=== PATIENT | female | born 1965 | race Caucasian/White ===

== ENCOUNTER 2016-10-12 11:03 | Observation (INO) | payer BC ==
[2016-10-06 16:20] LABS: HEMATOCRIT 41.7 % (36.0-48.0); HEMOGLOBIN 13.3 g/dL (12.0-16.0)
--- NOTE | ~2016-10-12 | OP ---
Record Of Operation [facility] [place]. [address] NAME: MADHURI ARAIZA : 65 STATUS : ADM Arcelia PAT#: [id number] AGE: 51 ADM/REG DATE : 10/12/16 MR#: [id number] REPORT SERV DATE: 10/12/16 DICTATED BY: NISSA TRONCOSO DATE: 10/12/16 REPORT STATUS : Draft TRANSCRIBED BY: MODL DATE: 10/12/16 DATE OF PROCEDURE: 10/12/2016 PREOPERATIVE DIAGNOSES: 1. Multinodular goiter with tracheal compression. 2. Tracheal stenosis. POSTOPERATIVE DIAGNOSES: 1. Multinodular goiter with tracheal compression. 2. Tracheal stenosis. PROCEDURE: 1. Total thyroidectomy. 2. Left superior parathyroid autotransplantation. 3. NIM monitoring of superior and recurrent laryngeal nerve. SURGEON: Nissa Troncoso M.D. ANESTHESIA: General. COMPLICATIONS: None. COUNTS: All counts correct following the procedure. ESTIMATED BLOOD LOSS: 200 mL. PREOPERATIVE INFORMED CONSENT: We discussed the risks and benefits of surgery to include, but not limited to bleeding, infection, possible superior and/or recurrent laryngeal nerve injury, possible postoperative hypoparathyroidism, and need for lifelong thyroid replacement therapy. She understands the risks and benefits of surgery and consent is on the chart. OPERATIVE FINDINGS: The patient noted to have severe inflammatory changes of the thyroid with increased vascularity surrounding the thyroid consistent with Graves disease or possible Pari's thyroiditis. DESCRIPTION OF PROCEDURE: The patient was brought to the operative suite and placed on the operating table in the supine position. General endotracheal anesthesia was initiated without incident using a [facility] monitoring endotracheal tube. The [facility] monitor was hooked up and calibrated and noted to be functioning properly. The neck was cleaned, prepped and draped in the usual sterile fashion. Following this, a transverse incision was marked out 2 fingerbreadths above the sternal notch and injected with 1% Lidocaine with 1:100,000 epinephrine for hemostasis. Following this, a #15-blade scalpel was used to make an incision down to the underlying subcutaneous tissues. Electrocautery was used to perform sharp dissection down through the platysma layer. The midline fascia was divided using electrocautery. The strap muscles were Record Of Operation [facility] [address] [place]. [address] NAME: MADHURI ARAIZA : 65 STATUS : ADM Arcelia PAT#: [id number] AGE: 51 ADM/REG DATE : 10/12/16 MR#: [id number] REPORT SERV DATE: 10/12/16 DICTATED BY: NISSA TRONCOSO DATE: 10/12/16 REPORT STATUS : Draft TRANSCRIBED BY: MODL DATE: 10/12/16 retracted laterally. Dissecting along the right capsular plane, the middle thyroid vein was dissected out and divided using the harmonic scalpel. The inferior pole vessels were dissected out and dissecting in the tracheoesophageal groove, the recurrent laryngeal nerve was identified and confirmed using the NIMH stimulator and preserved as it was followed up superiorly up to its insertion into the cricoid thyroid notch. The inferior pole vessels were then divided at the level of the capsule of the thyroid using the harmonic scalpel. The superior pole vessels were dissected out and the superior laryngeal nerve was identified and confirmed using the NIMH stimulator and preserved. The superior pole vessels were divided using the harmonic scalpel. The gland was further retracted medially and Esparza's ligament was divided using the harmonic scalpel, bipolar cautery, and a #15-blade scalpel. The gland was further dissected off the anterior tracheal wall and divided just to the left of midline using the harmonic scalpel. The specimen was inspected and there was no evidence of any subcapsular parathyroid. The left lobe of the thyroid was then again carefully dissected out just like the right-hand side, dividing the middle thyroid vein using the harmonic scalpel. The inferior pole vessels were dissected out and the recurrent laryngeal nerve was identified in the tracheoesophageal groove and confirmed using the NIMH stimulator and followed superiorly up to its insertion into the cricothyroid notch and was preserved in its entirety. The inferior and superior parathyroids were identified during the dissection of the recurrent laryngeal nerve. The superior pole vessels were again dissected out. The superior laryngeal nerve was also identified using the NIMH stimulator and preserved. The superior pole vessels were divided using the harmonic scalpel. The gland was further retracted medially and Esparza's ligament was again released using bipolar cautery, a #15-blade scalpel and the harmonic scalpel. The gland was dissected off the anterior tracheal wall using electrocautery and removed en bloc. The left lobe of the thyroid was inspected and there was no evidence of any subcapsular parathyroid tissue. The specimen was sent for permanent section. The wound was copiously irrigated with sterile saline. Any bleeding sites were cauterized using bipolar cautery. The [facility] stimulator was used to stimulate the superior and recurrent laryngeal nerves bilaterally at the end of the case and these were noted to be functioning properly. The deep cervical space was filled with platelet rich plasma and the midline fascia was closed using a running 3-0 Vicryl suture followed by closure of the platysmal layer using interrupted 3-0 Vicryl followed by placement of further platelet poor plasma in the subcutaneous and subplatysmal space. The skin was closed using running subcuticular Prolene suture followed by Benzoin, Steri-Strips and Tegaderm Dressing. The patient was then awakened from anesthesia, extubated, and taken to the recovery room in stable condition. Half of the superior parathyroid on the left hand side that was identified was removed, cut up into small pieces, and implanted in the left sternocleidomastoid muscle to help prevent the possibility of postoperative hypoparathyroidism. Wound was closed in the standard fashion. MEGAN/TEO Record Of [address] [address] NAME: MADHURI ARAIZA : 65 STATUS : ADM Arcelia PAT#: [id number] AGE: 51 ADM/REG DATE : 10/12/16 MR#: [id number] REPORT SERV DATE: 10/12/16 DICTATED BY: NISSA TRONCOSO DATE: 10/12/16 REPORT STATUS : Draft TRANSCRIBED BY: TEO DATE: 10/12/16 Nissa Troncoso M.D. / [id number] CC: Leslie Hein M.D.
[~2016-10-12 11:03] MED LIST: *DENIES; ADVIL PO; SYN.025B PO
[2016-10-12 12:55] LABS: PTH (INTRAOPERATIVE) 68.4 PG/ML (10.0-65.0); PTH TAT 0 Hrs 00 Mins
[2016-10-12 17:21] LABS: PTH (INTRAOPERATIVE) 52.5 PG/ML (10.0-65.0); PTH TAT 0 Hrs 00 Mins
[2016-10-13] MEDS ORDERED: ZOFRAN ODT4 MG PO (08:07)
[2016-10-13] MEDS ORDERED: DURICEF PO (08:07)
[2016-10-13] MEDS ORDERED: NORCO1 TA1 PO (08:07)
[2016-10-13] MEDS ORDERED: OS500+D PO (08:07)
[2016-11-04] MEDS ORDERED: SYN075 PO (03:41)
[2016-11-04] MEDS ORDERED: OS500+D PO (03:41)
[2016-11-04] MEDS ORDERED: ROCALTROL0.5 MCG PO (03:42)
[2016-11-04] MEDS ORDERED: FLONASE NAS (03:47)
[2016-11-04] MEDS ORDERED: LEVOTHYROXIN150 MCG PO (03:47)
[2016-11-08] MEDS ORDERED: SYN125 PO (13:11)
[2016-11-08] MEDS ORDERED: VITAMIN D31000 UNIT PO (13:12)
[2016-11-08] MEDS ORDERED: K-TABS10 MEQ PO (13:13)
[2016-11-08] MEDS ORDERED: OS500+D PO (13:14)
== END 2016-10-13 11:59 | disposition home or self-care (01) ==
LOC: SDC 11:03 → 4SO 19:19
PROVIDERS: Otolaryngology
PROC: 0GSM0ZZ Reposition Left Superior Parathyroid Gland, Open Approach (ICD-10-PCS; 2016-10-12)
PROC: 0GTK0ZZ Resection of Thyroid Gland, Open Approach (ICD-10-PCS; principal; 2016-10-12 13:15)
DX: C73 Malignant neoplasm of thyroid gland (principal); C79.89 Secondary malignant neoplasm of other specified sites; J39.8 Other specified diseases of upper respiratory tract; I34.1 Nonrheumatic mitral (valve) prolapse; E66.01 Morbid (severe) obesity due to excess calories; Z68.41 Body mass index [BMI] 40.0-44.9, adult; Z98.890 Other specified postprocedural states
CPT/HCPCS: 36415; 82310; 82330; 83970; 85014; 85018; 88305; 88307; 88331; 93005; 96374; 96376; A9270-GY; G0378; J0690; J2250; J2270; J2405; J2710; J3010

== ENCOUNTER 2016-10-14 17:06 | Inpatient (IN) | payer BC ==
[~2016-10-14 17:06] MED LIST changes: +DURICEF PO; +NORCO1 TA1 PO; +OS500+D PO; +ZOFRAN ODT4 MG PO
[2016-10-15 06:03] LABS: CALCIUM, SERUM 7.2 MG/DL (8.5-10.4)
[2016-10-15 08:04] LABS: BUN (BLOOD UREA NITROGEN) 13 MG/DL (6-23); CHLORIDE, SERUM 102 MMOL/L (96-112); CO2 (CARBON DIOXIDE) 30 MMOL/L (24-34); CREATININE 0.99 MG/DL (0.55-1.02); GFR AFRICAN AMERICAN 76 ML/MIN (>=60); GFR NON AFRICAN AMERICAN 66 ML/MIN (>=60); GLUCOSE, SERUM 86 MG/DL (60-99); SGOT(AST) 26 U/L (5-40); SGPT(ALT) 74 U/L (5-65); SODIUM, SERUM 141 MMOL/L (135-148); TOTAL BILIRUBIN 0.4 MG/DL (0-1.2); TOTAL PROTEIN 6.1 G/DL (6.0-8.5)
[2016-10-15 08:05] LABS: ALKALINE PHOSPHATASE 127 U/L (45-117); GLOBULIN 3.1 G/DL (2.5-4.1)
[2016-10-18] MEDS ORDERED: ROCALTROL0.5 MCG PO (10:30)
[2016-11-04] MEDS ORDERED: SYN075 PO (03:41)
[2016-11-04] MEDS ORDERED: OS500+D PO (03:41)
[2016-11-04] MEDS ORDERED: ROCALTROL0.5 MCG PO (03:42)
[2016-11-04] MEDS ORDERED: FLONASE NAS (03:47)
[2016-11-04] MEDS ORDERED: LEVOTHYROXIN150 MCG PO (03:47)
[2016-11-08] MEDS ORDERED: SYN125 PO (13:11)
[2016-11-08] MEDS ORDERED: VITAMIN D31000 UNIT PO (13:12)
[2016-11-08] MEDS ORDERED: K-TABS10 MEQ PO (13:13)
[2016-11-08] MEDS ORDERED: OS500+D PO (13:14)
== END 2016-10-18 11:13 | disposition home or self-care (01) | DRG 626 ==
LOC: 5SO 17:06
PROVIDERS: Otolaryngology
PROC: 0GTK0ZZ Resection of Thyroid Gland, Open Approach (ICD-10-PCS; principal; 2016-10-14)
PROC: 0GSM0ZZ Reposition Left Superior Parathyroid Gland, Open Approach (ICD-10-PCS; 2016-10-14)
DX: C73 Malignant neoplasm of thyroid gland (principal); C79.89 Secondary malignant neoplasm of other specified sites; Z68.41 Body mass index [BMI] 40.0-44.9, adult; E83.51 Hypocalcemia; E66.01 Morbid (severe) obesity due to excess calories; J39.8 Other specified diseases of upper respiratory tract; I34.1 Nonrheumatic mitral (valve) prolapse; Z98.890 Other specified postprocedural states
CPT/HCPCS: 36415; 80053; 82310; 82330; 83735; 83970; 85014; 85018; 88305; 88307; 88331; 93005; 96374; 96376; A9270-GY; G0378; J0610; J0690; J2250; J2270; J2405; J2710; J3010; J3475